=== PATIENT | male | born 1940 | race African-American/Black ===

== ENCOUNTER 2024-10-07 12:47 | Inpatient (IN) | payer OTHER ==
[2024-10-07 14:04] LABS: EOSINOPHIL % 0.1 % (0.8-7.0); EOSINOPHILS # 0.01 x10^3/uL (0.04-0.54)
[2024-10-07 14:06] LABS: ABSOLUTE IMMATURE GRANULOCYTES 0.12 x10^3/uL (0.0-0.031); BASOPHILS # 0.08 x10^3/uL (0.01-0.08); IMMATURE PLATELET FRACTION # 16.30 x10^3/uL; MCHC 30.3 g/dl (32.3-36.5); MEAN CELL VOLUME 93.7 fl (79.0-92.2); MEAN PLT VOLUME 11.9 fl (9.4-12.4); MONOCYTE # 1.46 x10^3/uL (0.30-0.82); MONOCYTE % 9.6 % (5.3-12.2); RDW 15.6 % (12.6-16.6)
[2024-10-07] MEDS ORDERED: PIPERACILLIN/TAZOB 4.5 GM 4.5 GM/100 ML BAG IVPB ONE (14:07)
[2024-10-07 14:08] LABS: BG HCT 31.0 % (35.4-49); VENOUS BASE EXCESS 8.1 mmol/L (-2-2); VENOUS O2 SATURATION 74.6 % (70-80); VENOUS PCO2 42.6 mmHg (38-52); VENOUS PH 7.495 (7.310-7.410)
[2024-10-07 14:13] LABS: ACTIVATED PTT 29.6 SECONDS (25.2-36.5)
[2024-10-07] MEDS: LACTATED RINGERS SOLUTION 1000 ML INFUS.BAG IV ONE (14:19)
[2024-10-07] MEDS: PIPERACILLIN/TAZOB 4.5 GM 4.5 GM in DEXTROSE 5%-WATER 100 ML IVPB ONE (14:19)
[2024-10-07 14:26] LABS: CO2 30.0 mmol/L (21-32); GLUCOSE,RANDOM 226.0 mg/dL (74-106)
[2024-10-07 14:29] LABS: CREATININE 0.6 mg/dL (0.55-1.3); SGOT/AST 29.0 U/L (15-37); SGPT/ALT 26.0 U/L (13-61)
[2024-10-07 14:31] LABS: TOT PROT 6.5 g/dl (6.4-8.2)
[2024-10-07 14:32] LABS: ALK PHOS 135.0 U/L (45-117)
[2024-10-07] MEDS ORDERED: VANCOMYCIN 1 GM PREMIX (F) 1 GM/200 ML BAG ONE (15:23)
[2024-10-07 15:54] LABS: INR 1.22 (0.83-1.09); PROTHROMBIN TIME (PATIENT) 13.4 SEC (9.7-13.0)
[2024-10-07] MEDS ORDERED: ALBUTEROL SO4 2.5/IPRATROPIUM 0.5 INH SOL 3 ML VIAL.NEB. NEB PRN (16:00)
[2024-10-07] MEDS ORDERED: ACETAMINOPHEN 325 MG TABLET (FP) PO PRN ×2 (16:01→18:28)
[2024-10-07] MEDS: VANCOMYCIN 1 GM PREMIX (F) 1 GM/200 ML BAG IVPB ONE (16:22)
[2024-10-07] MEDS ORDERED: INSULIN ASPART SLIDING SCALE (NOVOLOG) 1 VIAL SQ ONE (17:19)
[2024-10-07] MEDS: INSULIN ASPART SLIDING SCALE (NOVOLOG) 1 VIAL SQ SCH (17:28)
[2024-10-07] MEDS: SODIUM CHLORIDE 1,000 ML IV SCH (17:38)
[2024-10-07] MEDS ORDERED: PIPERACILLIN/TAZOB 3.375 GM 3.375 GM in DEXTROSE 5%-WATER - 50 ML IVPB SCH ×3 (22:00)
[2024-10-07] MEDS: amLODIPine BESYLATE 5 MG TABLET (FP) PO ONE (22:47)
[2024-10-07] MEDS: VANCOMYCIN 1,000 MG in DEXTROSE 5%-WATER - 250 ML IVPB ONE (22:48)
[2024-10-07] MEDS: PIPERACILLIN/TAZOB 3.375 GM 3.375 GM in DEXTROSE 5%-WATER - 50 ML IVPB SCH (22:49)
[2024-10-07] MEDS: VANCOMYCIN 1,000 MG in DEXTROSE 5%-WATER - 250 ML IVPB SCH (22:49)
[2024-10-07] MEDS: PIPERACILLIN/TAZOB 4.5 GM 4.5 GM/100 ML BAG IVPB SCH (23:43)
[2024-10-08 02:16] LABS: EPI CELLS 5 /uL (0-25.1); HYALINE CASTS 3 /uL (0-3.1); URINE APPEARANCE TURBID; URINE BACTERIA 561 /uL (0-1359); URINE BILIRUBIN NEGATIVE (NEGATIVE); URINE COLOR YELLOW; URINE GLUCOSE (UA) NEGATIVE (NEGATIVE); URINE KETONE NEGATIVE (NEGATIVE); URINE LEUK ESTERASE 3+ (NEGATIVE); URINE NITRITE NEGATIVE (NEGATIVE); URINE PROTEIN 2+ (NEGATIVE); URINE RBC 107 /uL (0-23.9); URINE UROBILINOGEN 1.0 mg/dL (0.2-1.0); URINE WBC 4857 /uL (0-25.8)
[2024-10-08] MEDS ORDERED: VANCOMYCIN 1 GM PREMIX (F) 1 GM/200 ML BAG IVPB SCH (05:00)
[2024-10-08] MEDS ORDERED: VANCOMYCIN 1,000 MG in DEXTROSE 5%-WATER - 250 ML IVPB SCH (05:00)
[2024-10-08 06:28] LABS: YEAST NONE SEEN (NEGATIVE)
[2024-10-08] MEDS: PANTOPRAZOLE SODIUM 40 MG VIAL IVPUSH SCH (06:35)
[2024-10-08 07:36] LABS: ABSOLUTE IMMATURE GRANULOCYTES 0.10 x10^3/uL (0.0-0.031); BASOPHILS # 0.07 x10^3/uL (0.01-0.08); EOSINOPHIL % 0.1 % (0.8-7.0); EOSINOPHILS # 0.01 x10^3/uL (0.04-0.54); MCHC 30.2 g/dl (32.3-36.5); MEAN CELL VOLUME 92.1 fl (79.0-92.2); MEAN PLT VOLUME 12.6 fl (9.4-12.4); MONOCYTE # 1.30 x10^3/uL (0.30-0.82); MONOCYTE % 10.4 % (5.3-12.2); RDW 15.8 % (12.6-16.6)
[2024-10-08 08:10] LABS: CO2 30.0 mmol/L (21-32); GLUCOSE,RANDOM 180.0 mg/dL (74-106)
[2024-10-08 08:13] LABS: CREATININE 0.6 mg/dL (0.55-1.3); SGOT/AST 23.0 U/L (15-37); SGPT/ALT 26.0 U/L (13-61)
[2024-10-08 08:15] LABS: TOT PROT 6.8 g/dl (6.4-8.2)
[2024-10-08 08:16] LABS: ALK PHOS 125.0 U/L (45-117)
[2024-10-08] MEDS: amLODIPine BESYLATE 5 MG TABLET (FP) PO SCH (10:13)
[2024-10-08] MEDS: ENOXAPARIN NA (PORCINE) 40 MG/0.4 ML DISP.SYRIN SQ SCH (10:13)
[2024-10-08] MEDS: PNEUMOC 20-VAL CONJ-DIP CRM/PF 0.5 ML SYRINGE IM ONE (10:14)
[2024-10-08] MEDS: VANCOMYCIN/WATER FOR INJ (PEG) 750 MG/150 ML BAG IVPB SCH (11:17)
[2024-10-08 12:05] VITALS: BMI 17.4
[2024-10-08] MEDS ORDERED: ACETAMINOPHEN 650 MG/20.3 ML ORAL SOLUTION (CUPS) PEG PRN (13:21)
[2024-10-08] MEDS ORDERED: MULTIVIT-MINERALS ORAL LIQUID PEG SCH (14:23)
[2024-10-08] MEDS: levETIRAcetam 500 MG/5 ML ORAL SOLUTION (UNIT-DOSE CUPS) PEG ONE (14:23)
[2024-10-08] MEDS: MULTIVITAMINS (DAILY MVI) TABLET (FP) PO SCH (14:40)
[2024-10-08] MEDS: MULTIVIT-MINERALS ORAL LIQUID PEG SCH (15:24)
[2024-10-08] MEDS ORDERED: levETIRAcetam 500 MG/5 ML ORAL SOLUTION (UNIT-DOSE CUPS) PO SCH (22:00)
[2024-10-08] MEDS ORDERED: ASCORBIC ACID 500 MG/5 ML UNIT DOSE CUP PEG SCH (22:00)
[2024-10-08] MEDS: ASCORBIC ACID 500 MG/5 ML UNIT DOSE CUP PEG SCH (22:53)
[2024-10-08] MEDS: levETIRAcetam 500 MG/5 ML ORAL SOLUTION (UNIT-DOSE CUPS) PEG SCH (22:53)
[2024-10-09 08:43] LABS: ABSOLUTE IMMATURE GRANULOCYTES 0.14 x10^3/uL (0.0-0.031); BASOPHILS # 0.07 x10^3/uL (0.01-0.08); EOSINOPHIL % 0.3 % (0.8-7.0); EOSINOPHILS # 0.03 x10^3/uL (0.04-0.54); MCHC 29.9 g/dl (32.3-36.5); MEAN CELL VOLUME 89.7 fl (79.0-92.2); MEAN PLT VOLUME 12.2 fl (9.4-12.4); MONOCYTE # 1.29 x10^3/uL (0.30-0.82); MONOCYTE % 12.3 % (5.3-12.2); RDW 15.3 % (12.6-16.6)
[2024-10-09 09:38] LABS: CREATININE 0.5 mg/dL (0.55-1.3); GLUCOSE,RANDOM 197.0 mg/dL (74-106)
[2024-10-09 09:40] LABS: TOT PROT 5.9 g/dl (6.4-8.2)
[2024-10-09 09:41] LABS: ALK PHOS 105.0 U/L (45-117); SGOT/AST 18.0 U/L (15-37); SGPT/ALT 19.0 U/L (13-61)
[2024-10-09 09:42] LABS: CO2 27.0 mmol/L (21-32)
[2024-10-09] MEDS ORDERED: ASCORBIC ACID 500 MG/5 ML UNIT DOSE CUP PEG SCH (10:00)
[2024-10-09] MEDS: amLODIPine BESYLATE 5 MG TABLET (FP) PEG SCH (10:47)
[2024-10-09] MEDS: PIPERACILLIN/TAZOB 4.5 GM 4.5 GM in DEXTROSE 5%-WATER 100 ML IVPB SCH (15:42)
[2024-10-10 07:48] LABS: MEAN PLT VOLUME 11.7 fl (9.4-12.4)
[2024-10-10 07:49] LABS: ABSOLUTE IMMATURE GRANULOCYTES 0.08 x10^3/uL (0.0-0.031); BASOPHILS # 0.07 x10^3/uL (0.01-0.08); EOSINOPHIL % 0.4 % (0.8-7.0); EOSINOPHILS # 0.04 x10^3/uL (0.04-0.54); IMMATURE PLATELET FRACTION # 9.00 x10^3/uL; MCHC 29.9 g/dl (32.3-36.5); MEAN CELL VOLUME 89.3 fl (79.0-92.2); MONOCYTE # 1.31 x10^3/uL (0.30-0.82); MONOCYTE % 14.0 % (5.3-12.2); RDW 15.3 % (12.6-16.6)
[2024-10-10 08:18] LABS: CO2 30.0 mmol/L (21-32); GLUCOSE,RANDOM 217.0 mg/dL (74-106)
[2024-10-10 08:21] LABS: CREATININE 0.6 mg/dL (0.55-1.3); SGOT/AST 17.0 U/L (15-37); SGPT/ALT 16.0 U/L (13-61)
[2024-10-10 08:23] LABS: TOT PROT 5.5 g/dl (6.4-8.2)
[2024-10-10 08:24] LABS: ALK PHOS 99.0 U/L (45-117)
[2024-10-11 06:54] LABS: BASOPHILS # 0.08 x10^3/uL (0.01-0.08)
[2024-10-11 06:56] LABS: ABSOLUTE IMMATURE GRANULOCYTES 0.13 x10^3/uL (0.0-0.031); EOSINOPHIL % 0.6 % (0.8-7.0); EOSINOPHILS # 0.05 x10^3/uL (0.04-0.54); IMMATURE PLATELET FRACTION # 27.20 x10^3/uL; MCHC 30.4 g/dl (32.3-36.5); MEAN CELL VOLUME 90.4 fl (79.0-92.2); MONOCYTE # 0.99 x10^3/uL (0.30-0.82); MONOCYTE % 11.1 % (5.3-12.2); RDW 15.5 % (12.6-16.6)
[2024-10-11 07:20] LABS: CO2 29.0 mmol/L (21-32); GLUCOSE,RANDOM 303.0 mg/dL (74-106)
[2024-10-11 07:22] LABS: CREATININE 0.6 mg/dL (0.55-1.3); SGPT/ALT 20.0 U/L (13-61)
[2024-10-11 07:23] LABS: SGOT/AST 27.0 U/L (15-37); TOT PROT 5.8 g/dl (6.4-8.2)
[2024-10-11 07:25] LABS: ALK PHOS 111.0 U/L (45-117)
[2024-10-11 08:32] LABS: MEAN PLT VOLUME 12.6 fl (9.4-12.4)
[2024-10-12 07:02] LABS: ABSOLUTE IMMATURE GRANULOCYTES 0.15 x10^3/uL (0.0-0.031); BASOPHILS # 0.08 x10^3/uL (0.01-0.08); EOSINOPHIL % 0.7 % (0.8-7.0); EOSINOPHILS # 0.07 x10^3/uL (0.04-0.54); MCHC 30.3 g/dl (32.3-36.5); MEAN CELL VOLUME 89.2 fl (79.0-92.2); MEAN PLT VOLUME 11.9 fl (9.4-12.4); MONOCYTE # 1.29 x10^3/uL (0.30-0.82); MONOCYTE % 12.1 % (5.3-12.2); RDW 15.4 % (12.6-16.6)
[2024-10-12 07:28] LABS: CO2 29.0 mmol/L (21-32); GLUCOSE,RANDOM 246.0 mg/dL (74-106)
[2024-10-12 07:30] LABS: ALK PHOS 108.0 U/L (45-117); CREATININE 0.5 mg/dL (0.55-1.3); SGOT/AST 31.0 U/L (15-37); SGPT/ALT 28.0 U/L (13-61)
[2024-10-12 07:31] LABS: TOT PROT 5.9 g/dl (6.4-8.2)
[2024-10-12] MEDS: CEFTRIAXONE 1 GM in DEXTROSE 5%-WATER - 50 ML IVPB SCH (09:27)
[2024-10-14 05:21] VITALS: BP 156/92; PULSE 106; RESP 16; TEMP 97.2
== END 2024-10-14 13:24 | DRG 871 ==
LOC: JER 12:47 → UNDOADMIN 16:01 → JERBED 16:01 → J4W 19:06 → J4S 10-08 06:28
PROVIDERS: ADMIT Internal Medicine; ATTEND Internal Medicine
DX: A41.9 Sepsis, unspecified organism (principal); E43 Unspecified severe protein-calorie malnutrition; L89.894 Pressure ulcer of other site, stage 4; J18.9 Pneumonia, unspecified organism; J96.11 Chronic respiratory failure with hypoxia; Z68.1 Body mass index [BMI] 19.9 or less, adult; L89.890 Pressure ulcer of other site, unstageable; L89.220 Pressure ulcer of left hip, unstageable; L89.310 Pressure ulcer of right buttock, unstageable; L89.610 Pressure ulcer of right heel, unstageable; L89.620 Pressure ulcer of left heel, unstageable; F03.90 Unspecified dementia, unspecified severity, without behavioral disturbance, psychotic disturbance, mood disturbance, and anxiety
CPT/HCPCS: 0241U-QW; 36415; 71045-TC-FY; 80053; 80177; 81003; 82803; 82962; 83036; 83605; 83735; 84484; 85025; 85610; 85730; 86850; 86900; 86901; 87040; 87086; 87324; 87449; 87899; 90677; 93005; 93010; 99291; G0480